=== PATIENT | female | born 1970 | race Caucasian/White ===

== ENCOUNTER 2018-03-24 13:21 | Emergency (ER) | payer BC, OTHER ==
[~2018-03-24] VITALS: Ht 172.7 cm; Wt 77.1 kg
[2018-03-24] MEDS ORDERED: [UNRECOGNIZED DRUG - OTHER] (13:44)
[2018-03-24] MEDS ORDERED: FOLIC ACID1 MG PO (13:48)
[2018-03-24] MEDS ORDERED: SYNTHROID125 MC1 PO (13:49)
[2018-03-24] MEDS ORDERED: IBUPROFEN 600600 M1 (13:49)
[2018-03-24] MEDS ORDERED: OMEPRAZOLE20 M2 PO (13:50)
[2018-03-24] MEDS ORDERED: METHOTREXATE 22.5 MG PO (13:51)
[2018-03-24] MEDS ORDERED: IBUPROFEN 800800 M1 PO (14:58)
[2018-03-24] MEDS ORDERED: ZANAFLEX4 MG PO (14:58)
[2018-03-24] MEDS ORDERED: MEDROLDOSEPACK PO (14:58)
[2018-03-24 15:10] VITALS: BP 156/78
== END 2018-03-24 15:10 | disposition home or self-care (01) ==
LOC: M.ERS 13:21
DX: M54.16 Radiculopathy, lumbar region (principal); M06.9 Rheumatoid arthritis, unspecified; Z98.890 Other specified postprocedural states; F17.210 Nicotine dependence, cigarettes, uncomplicated